=== PATIENT | male | born 1990 | race Two or more races ===

== ENCOUNTER 2022-07-09 22:36 | Emergency (ER) | payer SELFPAY ==
[~2022-07-09] VITALS: Ht 177.8 cm; Wt 86.4 kg
[2022-07-09 22:52] VITALS: BP 136/75
== END 2022-07-09 23:15 | disposition left against medical advice (07) ==
LOC: EMS 22:38
DX: Z48.02 Encounter for removal of sutures (principal); Z53.21 Procedure and treatment not carried out due to patient leaving prior to being seen by health care provider